=== PATIENT | male | born 2000 | race Caucasian/White ===

== ENCOUNTER 2024-07-28 16:29 | Emergency (ER) | payer SELFPAY ==
[~2024-07-28] VITALS: Ht 170.2 cm; Wt 81.6 kg
--- NOTE | 2024-07-28 17:03 | ERN ---
ED Note History of Present Illness Stated Complaint: CHEST PAIN Chief Complaint: Chest Pain Time Seen by MD: 16:41 Dictation: PATIENT IS A 24-YEAR-OLD MALE HERE WITH HIS MOTHER WITH COMPLAINTS OF HAVING LEFT ANTERIOR CHEST PAIN WORSE WITH COUGH OR INSPIRATION ONSET TWO WEEKS PRIOR TO ARRIVAL. HE STATES HE HAD HAD A COUGH SEVERAL WEEKS AGO SEEN BY A DOCTOR AND WAS TREATED WITH STEROIDS HOWEVER NEVER GOT BETTER FAR THE CHEST PAIN. HAD NO FEVER NO CHILLS NO JAW PAIN NO BACK PAIN NO ARM PAIN. DENIES ANY HISTORY OF CAD HYPERTENSION CHOLESTEROL. Allergies: Coded Allergies: No Known Allergies (Unverified Allergy, Unknown, 07/28/24) Past Medical History Past Medical History: No Pertinent History Surgical History: Other RN Note Reviewed/Agreed w/PFSH: Yes Review of System Dictation CONSTITUTIONAL: NEGATIVE EXCEPT FOR HPI HEAD/FACE: NEGATIVE EXCEPT FOR HPI EENT: NEGATIVE EXCEPT FOR HPI RESPIRATORY: NEGATIVE EXCEPT FOR HPI LEFT ANTERIOR CHEST PAIN GASTROINTESTINAL/ABDOMINAL: NEGATIVE EXCEPT FOR HPI GENITOURINARY: NEGATIVE EXCEPT FOR HPI MUSCULOSKELETAL: NEGATIVE EXCEPT FOR HPI INTEGUMENTARY: NEGATIVE EXCEPT FOR HPI NEUROLOGICAL/PSYCH: NEGATIVE EXCEPT FOR HPI HEMATOLOGIC/LYMPHATIC: NEGATIVE EXCEPT FOR HPI ALL SYSTEMS NEGATIVE, EXCEPT NOTED ABOVE. 13 POINT REVIEW OF SYSTEMS ASSESSED AND ALL NEGATIVE EXCEPT FOR ABOVE. Initial Vital Sign VS Vital Signs Date Time Temp Pulse Resp B/P (MAP) Pulse Ox O2 Delivery O2 Flow Rate FiO2 07/28/24 16:38 98.4 77 20 151/94 98 Room Air Physical Exam Dictation VITAL SIGNS REVIEWED GENERAL APPEARANCE: ALERT, ORIENTED X 3, NO ACUTE DISTRESS, WELL DEVELOPED, NOURISHED. HEAD AND FACE: NON-TRAUMATIC. EYES: PERRL, PINK CONJUNCTIVAS, EYELID NO TRAUMA, ANTERIOR CHAMBER WITH ARCUS SENILIS. EARS: PINNAS INTACT AND NO SIGNS OF TRAUMA OR ERYTHEMA EAR CANALS CLEAR AND NO DISCHARGE TM NO ERYTHEMA NOSE: NO DISCHARGE, NO BLEEDING. OROPHARYNX: MOUTH NORMAL, TONGUE PINK, PHARYNX CLEAR,NO ERYTHEMA, TONSILS NO EXUDATES, NO ABSCESSES NOTED, MUCOUS MEMBRANE MOIST NECK: SUPPLE, NON-TENDER, NO THYROMEGALY, NO MASSES, NO JVD, NO BRUITS BREAST:DEFERRED CHEST: LEFT ANTERIOR CHEST WALL PAIN/ TENDERNESS, NO CREPITUS, NO PARADOXICAL MOVEMENT, NO RETRACTIONS PALPATION REPRODUCES PAIN LUNGS:CLEAR, WELL-VENTILATED, SYMMETRIC, NO RALES, NO WHEEZING, NO RHONCHI, NO STRIDOR, GOOD BREATH SOUNDS BILATERALLY HEART: REGULAR RATE, REGULAR RHYTHM, NO MURMUR, NO GALLOPS VASCULAR: NO PERIPHERAL EDEMA, ABDOMEN: SOFT, POSITIVE BOWEL SOUNDS, NONDISTENDED, NO GUARDING, NONTENDER, NO REBOUND, NO MASSES NO HEPATOMEGALY, NO SPLENOMEGALY, NO MARTINES'S SIGN, NO HERNIAS. RECTAL: DEFERRED GENITAL: DEFERRED NEUROLOGICAL: NORMAL SPEECH, MOTOR FUNCTION INTACT, SENSORY FUNCTION INTACT MUSCULOSKELETAL: NECK NONTENDER, FULL RANGE OF MOTION, BACK NONTENDER, FULL RANGE OF MOTION, EXTREMITIES: NONTENDER, FULL RANGE OF MOTION SKIN: COLOR PINK, DRY, NO TURGOR, NO RASH, NO LACERATIONS, NO ABRASIONS, NO CONTUSIONS. LYMPHATIC: DEFERRED Results (Laboratory/Radiology) Laboratory/Radiology CHEST X-RAY NEGATIVE Labs Reviewed?: Yes EKG Comment: EKG NORMAL SINUS RHYTHM/HEART RATE 71/AXIS NORMAL/NO ECTOPY ED Course ED Course Orders Procedure Category Date Status Time 12 Lead Ekg Tracing- EKG 07/28/24 Logged Technical 16:42 Ketorolac 60mg/2ml PHA 07/28/24 Complete (Toradol 60mg/2ml) 17:00 Dexamethasone 4mg/Ml PHA 07/28/24 Complete 1ml Vial (Dexametha 17:00 Chest 1vw RAD 07/28/24 Taken 16:52 Current Medications Medications (Trade) Dose Ordered Sig/Kandace Route PRN Reason Start Time Stop Time Status Last Admin Dose Admin Dexamethasone Sodium Phosphate (dexaMETHasone 4MG/ML 1ML VIAL) 8 mg ONCE ONCE IM 07/28/24 17:00 07/28/24 17:01 DC 07/28/24 17:13 Ketorolac Tromethamine (toRADol 60MG/ 2ML) 60 mg ONCE ONCE IM 07/28/24 17:00 07/28/24 17:01 DC 07/28/24 17:13 Vital Signs Date Time Temp Pulse Resp B/P (MAP) Pulse Ox O2 Delivery O2 Flow Rate FiO2 07/28/24 16:38 98.4 77 20 151/94 98 Room Air 1750/PATIENT STATES PAIN IS MARKEDLY REDUCED AFTER TREATMENT WITH DECADRON AND TORADOL. HE IS AWARE EKG AND CHEST X-RAY NEGATIVE MOTHER AT BEDSIDE AND ALL QUESTIONS ANSWERED Medical Decision Making MDM MEDICAL DISCHARGE MAKING BASED ON EKG AND CHEST X-RAY. CHEST X-RAY NEGATIVE EKG NORMAL PAIN IS REPRODUCIBLE WITH PALPATION OR COUGH, IS LOCALIZED. DISCHARGED HOME WITH DIAGNOSIS OF COSTOCHONDRITIS DX & DISP Disposition: Discharge Departure Impression: Primary Impression: Acute costochondritis Condition: Stable Scripts Ibuprofen (Ibuprofen 800 mg Tab) 800 Mg Tab 800 MG PO Q8H PRN for fever or pain, #30 TAB 0 Refills Prov: RADHA DOHERTY NP 07/28/24 Prednisone (Prednisone) 20 Mg Tablet 1 TAB PO AD for 6 Days, #14 TAB 0 Refills TAKE 1 TAB BY MOUTH THREE TIMES PER DAY X3 DAYS, THEN TAKE 1 TAB BY MOUTH TWICE A DAY X2 DAYS, THEN TAKE 1 TAB BY MOUTH ONCE A DAY X1 DAY. Prov: RADHA DOHERTY NP 07/28/24 Additional Instructions: FOLLOW-UP WITH PRIMARY CARE PROVIDER IN 1 TO 2 DAYS. TAKE MEDICATIONS DIRECTED HERE IN THE EMERGENCY ROOM. OKAY TO CONTINUE HOME MEDICATIONS UNLESS OTHERWISE DISCUSSED DURING YOUR VISIT IN THE EMERGENCY ROOM TODAY. RETURN TO YOUR NEAREST EMERGENCY ROOM IF SYMPTOMS WORSEN OR IF THERE IS NO IMPROVEMENT. CALL 911 IF YOU NEED IMMEDIATE ASSISTANCE. TAKE TYLENOL OR MOTRIN [id number] NEEDED AND IF NO CONTRAINDICATIONS ARE PRESENT. INCREASE ORAL HYDRATION. A WOUND CULTURE OR URINE CULTURE WAS ORDERED HERE IN THE EMERGENCY ROOM DEPARTMENT PLEASE FOLLOW-UP WITH PRIMARY CARE PROVIDER AND ADVISE THEM TO GET REPEAT PORTS FROM OUR FACILITY. IF YOU HAD ANY EVANGELINA WRAP/SPLINTS THAT WERE APPLIED HERE, PLEASE DO NOT REMOVE THEM UNTIL YOU SEE YOUR PRIMARY CARE OR SPECIALTY. TAKE IBUPROFEN EVERY 8 HOURS WITH FOOD FOR TWO DAYS. TAKE PREDNISONE DIRECTED WITH FOOD UNTIL GONE. SEE YOUR PRIMARY CARE DOCTOR FOR FOLLOW UP. Referrals: SELF,REFERRAL (PCP) Time of Disposition: 17:54 I have reviewed the case, and I agree with, Diagnosis and Plan RADHA DOHERTY NP Jul 28, 2024 17:03
[2024-07-28] MEDS: dexaMETHasone SOD PHOSPHATE 4 MG/ML 1ML VIAL IM ONE (17:13)
[2024-07-28] MEDS: ketOROlac 60 MG VIAL (30MG/ML) IM ONE (17:13)
--- NOTE | 2024-07-28 17:54 | HMCIMG ---
PORTABLE CHEST RADIOGRAPH INDICATION: CHEST PAIN COMPARISON: None FINDINGS: Heart size is normal. The pulmonary vascularity and saray appear normal. No abnormal pulmonary parenchymal opacity or consolidation identified. No significant pleural effusion noted. No pneumothorax detected. IMPRESSION: No radiographic evidence for any acute cardiopulmonary process.
[2024-07-28] MEDS ORDERED: PRED20TA3 PO (17:56)
[2024-07-28] MEDS ORDERED: IBUP-2077 PO (17:56)
[2024-07-28 18:37] VITALS: BP 137/59; PULSE 91; RESP 18; TEMP 97.9; O2SAT 98
--- NOTE | 2024-07-29 06:49 | EKG ---
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
== END 2024-07-28 18:38 | disposition home or self-care (01) ==
LOC: EDH 16:29
DX: M94.0 Chondrocostal junction syndrome [Tietze] (principal)
CPT/HCPCS: 99284; 71045; 96372 ×2; 93005; J1100; J1885